=== PATIENT | female | born 1955 | race American Indian/Alaskan Native ===

== ENCOUNTER 2021-11-23 07:32 | Outpatient (CLI) | payer OTHER ==
--- NOTE | 2021-11-23 10:10 | Vascular Lab Report ---
DUPLEX DOPPLER LOWER EXTREMITY VEINS, BILATERAL INDICATION / CLINICAL INFORMATION: R60.9 EDEMA. Lower extremity pain and edema TECHNIQUE: Duplex doppler imaging was performed through the veins of both lower extremities using venous melanie jenifer and other maneuvers. COMPARISON: None available. FINDINGS: Right Common Femoral vein: Negative. Right Femoral vein: Negative. Right Popliteal vein: Negative. Right Calf veins: Negative. Left Common Femoral vein: Negative. Left Femoral vein: Negative. Left Popliteal vein: Negative. Left Calf veins: Negative. Additional findings: None. IMPRESSION: 1. No sonographic evidence for DVT in either lower extremity. Signer Name: Júnior Malloy MD Signed: 11/23/2021 10:06 AM Workstation Name: [id number]
== END 2021-11-23 07:33 | disposition home or self-care (01) ==
LOC: VAS 07:32
PROVIDERS: ATTEND Internal Medicine Rheumatology
DX: R22.43 Localized swelling, mass and lump, lower limb, bilateral (principal); R60.9 Edema, unspecified
CPT/HCPCS: 93970